=== PATIENT | female | born 1970 | race Two or more races ===

== ENCOUNTER 2016-11-05 10:29 | Emergency (ER) | payer SELFPAY ==
[2016-11-05 11:15] LABS: ABSOLUTE NEUTROPHIL COUNT 8.8 K/mm3 (1.8-7.7); BASO # 0.1 K/mm3 (0.0-0.2); BASO % 0.4 % (0.2-1.0); EOS # 0.2 (0.0-0.5); EOS % 1.7 % (0.9-2.9); HEMATOCRIT 40.4 % (37.0-47.0); HEMOGLOBIN 13.2 gm/l (12.0-16.0); IMM NEUT% 0.3 % (0-1); LYMPH # 2.5 (1.0-4.8); LYMPH % 20.5 % (15-45); MEAN CELL VOLUME 88.2 fl (81.0-99.0); MEAN CORPUSCULAR HEMOGLOBIN 28.8 pg (27.0-31.0); MEAN CORPUSCULAR HGB CONC 32.7 g/dl (33.0-37.0); MEAN PLATELET VOLUME 9.8 fl (7.4-10.4); MONO # 0.6 (0.0-0.8); MONO % 4.6 % (4-12); NEUT % 72.5 % (43-75); PLATELET COUNT 355 K/mm3 (130-400); RED CELL DISTRIBUTION WIDTH 13.1 % (11.5-14.5)
[2016-11-05 11:54] LABS: ALB/GLOB RATIO 1.1 (>1.0); ALBUMIN 4.4 gm/dL (3.5-5.7); CALCIUM 9.4 mg/dL (8.6-10.3)
[2016-11-05 12:13] LABS: URINE BILIRUBIN NEGATIVE (NEGATIVE); URINE BLOOD TRACE (NEGATIVE); URINE GLUCOSE (UA) NEGATIVE (NEGATIVE); URINE LEUKOCYTE ESTERASE NEGATIVE (NEGATIVE); URINE NITRITE NEGATIVE (NEGATIVE); URINE PROTEIN NEGATIVE (NEGATIVE); URINE UROBILINOGEN NORMAL (0-1 mg/dl)
[2016-11-05 12:15] LABS: URINE APPEARANCE CLEAR; URINE COLOR YELLOW
[2016-11-05 12:16] LABS: HCG,QUALITATIVE URINE NEGATIVE
[2016-11-05 12:44] LABS: URINE BACTERIA FEW; URINE WBC NEG /hpf
[2016-11-05 12:45] LABS: URINE MUCUS 1+
== END 2016-11-05 13:08 | disposition home or self-care (01) ==
LOC: ED 10:29
DX: R10.30 Lower abdominal pain, unspecified (principal); R11.10 Vomiting, unspecified